=== PATIENT | male | born 1935 | race Caucasian/White ===

== ENCOUNTER 2017-08-17 08:59 | Day surgery (SDC) | payer MEDICARE ==
[~2017-08-17 08:59] MED LIST: ACYCLOVIR200 MG PO; ALLOPURINOL300 M1 PO; AMOXICILLIN 50500 MG PO; BP MED OR; CETIRIZINE10 MG OR; CRESTOR5 MG PO; GABAPENTIN100 M1 PO; HYDROCHLOROTHIA50 MG PO; IMITREX100 MG PO; LYRICA75 MG PO; MECLIZINE 25MG25 MG PO; MIRALAX17 GM/PACK PO; NASACORT A55 MCG/Act NS; PANTOPRAZOLE SO40 MG PO; POTASSIUM CHLO20 ME2 PO; PULMICORT0.5 MG/2 M IN; ROBAFEN DM473 ML PO; SIMVASTATIN20 MG PO; TOPIRAMATE 100100 M1 PO; VENTOLIN H0.09 MG/AC IH; VERAPAMIL SR 2240 MG PO; VICODIN 5/500 T1 TAB PO; ZANTAC 150150 MG PO; ZOFRAN4 MG/5 ML PO
[2017-08-17 12:53] VITALS: BP 146/99
== END 2017-08-17 11:00 | disposition home or self-care (01) ==
LOC: SDC 08:59
PROVIDERS: Ophthalmology
PROC: 08RJ3JZ Replacement of Right Lens with Synthetic Substitute, Percutaneous Approach (ICD-10-PCS; principal; 2017-08-17 11:30)
DX: H26.9 Unspecified cataract (principal)
CPT/HCPCS: V2632

== ENCOUNTER 2017-08-31 07:26 | Day surgery (SDC) | payer MEDICARE ==
[2017-08-31 09:30] VITALS: BP 148/92
== END 2017-08-31 09:28 | disposition home or self-care (01) ==
LOC: SDC 07:26
PROC: 08RK3JZ Replacement of Left Lens with Synthetic Substitute, Percutaneous Approach (ICD-10-PCS; principal; 2017-08-31)
DX: H26.9 Unspecified cataract (principal)